=== PATIENT | male | born 1960 | race Caucasian/White ===

== ENCOUNTER 2017-09-14 07:40 | Outpatient (CLI) | payer OTHER ==
--- NOTE | 2017-09-15 14:05 | MRI Report ---
Procedure Date: 09/14/2017 Accession Number: [id number] / [id number] Procedure: MRI - Shoulder RT W/O CPT Code: FULL RESULT: EXAM: RIGHT SHOULDER MRI WITHOUT CONTRAST EXAM DATE: 09/14/2017 08:00 AM. CLINICAL HISTORY: Rotator cuff tear. COMPARISON: None. TECHNIQUE: Multiplanar, multisequence T1-weighted and fluid-sensitive sequences of the shoulder without contrast. Other: None. FINDINGS: Rotator cuff: Ill-defined partial-thickness distal articular surface tear of the supraspinatus measuring approximately 1.4 cm medial to lateral and 1.5 cm anteroposterior. This tear appears to involve approximately 50% of the tendon thickness. There is patchy edema throughout the distal supraspinatus. Focal edema at the upper infraspinatus insertion with possible 3-mm focus of low-grade intrasubstance insertional tear. Ill-defined partial-thickness distal intrasubstance and articular surface tear of the subscapularis measuring approximately 1.0 cm craniocaudad and 1.2 cm medial to lateral. There is medial dislocation of the biceps tendon from the bicipital groove into the substance of the lower fibers of the distal subscapularis and deep to the remaining upper fibers of the distal subscapularis. Mild fatty atrophy involving upper fibers of the subscapularis. Remaining rotator cuff muscles demonstrate no atrophy. Long head biceps tendon: Medial dislocation from the bicipital groove coursing deep to the upper fibers of the subscapularis with intact biceps anchor. Labrum: Intact. No tear is identified. Bones and articular surfaces: No significant articular cartilage defects. Acromioclavicular joint: Normal appearance. Type II acromion. IMPRESSION: 1. Intermediate grade partial-thickness articular surface tear of the distal supraspinatus approximately 1.4 x 1.5 cm. 2. Partial-thickness distal intrasubstance and articular surface tear of the subscapularis approximately 1.0 x 1.2 cm allowing medial dislocation of the otherwise intact long head biceps tendon. [facility] MUSCULOSKELETAL RADIOLOGY SECTION
== END 2017-09-14 07:41 | disposition home or self-care (01) ==
LOC: DI 07:40
PROVIDERS: ATTEND Physician Assistant
DX: M75.101 Unspecified rotator cuff tear or rupture of right shoulder, not specified as traumatic (principal)

== ENCOUNTER 2018-04-28 10:25 | Outpatient (CLI) | payer OTHER | END 2018-04-28 10:26 | disposition home or self-care (01) | LOC: SC 10:25 | PROVIDERS: ATTEND Internal Medicine Pulmonary Disease | DX: G47.10 Hypersomnia, unspecified (principal); R06.81 Apnea, not elsewhere classified; G47.8 Other sleep disorders; R06.83 Snoring | CPT/HCPCS: 99203; 99212 ==

== ENCOUNTER 2018-06-06 23:11 | Outpatient (CLI) | payer OTHER | END 2018-06-06 23:12 | disposition home or self-care (01) | LOC: SC 23:11 | PROVIDERS: ATTEND Internal Medicine Pulmonary Disease | DX: G47.61 Periodic limb movement disorder (principal) | CPT/HCPCS: 95810 ==

== ENCOUNTER 2018-06-17 16:06 | Outpatient (CLI) | payer OTHER | END 2018-06-17 16:07 | disposition home or self-care (01) | LOC: SC 16:06 | PROVIDERS: ATTEND Nurse Practitioner Family | DX: R06.83 Snoring (principal); G47.61 Periodic limb movement disorder | CPT/HCPCS: 99212; 99214 ==

== ENCOUNTER 2018-07-18 09:37 | Outpatient (CLI) | payer OTHER ==
[2018-07-18 12:53] LABS: BASOPHILS # (AUTO) 0.1 10^3/uL (0.0-0.1); BASOPHILS % (AUTO) 1.1 %; EOSINOPHILS # (AUTO) 0.1 10^3/uL (0.0-0.7); EOSINOPHILS % (AUTO) 1.6 %; HGB - HEMOGLOBIN 16.5 g/dL (14.0-18.0); LYMPHOCYTES # (AUTO) 2.1 10^3/uL (1.5-3.5); LYMPHOCYTES % (AUTO) 29.7 %; MEAN CORPUSCULAR HEMOGLOBIN 31.7 pg (27.0-31.0); MEAN CORPUSCULAR HGB CONC 35.3 g/dL (32.0-36.0); MEAN CORPUSCULAR VOLUME 89.8 fL (80.0-94.0); MEAN PLATELET VOLUME 8.7 fL (7.4-11.4); MONOCYTES # (AUTO) 0.7 10^3/uL (0.0-1.0); MONOCYTES % (AUTO) 9.1 %; NEUTROPHILS # (AUTO) 4.2 10^3/uL (1.5-6.6); NEUTROPHILS % (AUTO) 58.5 %; PLT - PLATELET COUNT 222 10^3/uL (130-450); RED BLOOD COUNT 5.22 10^6/uL (4.70-6.10); RED CELL DISTRIBUTION WIDTH 13.2 % (12.0-15.0); WHITE BLOOD COUNT 7.2 x10^3/uL (4.8-10.8)
[2018-07-18 13:15] LABS: ALBUMIN 4.2 g/dL (3.2-5.5); ALBUMIN/GLOBULIN RATIO 1.4 (1.0-2.2); ALKALINE PHOSPHATASE 102 IU/L (42-121); ALT ALANINE AMINOTRANSFERASE 41 IU/L (10-60); AST ASPARTATE AMINOTRANSFERASE 28 IU/L (10-42); BILIRUBIN,TOTAL 0.9 mg/dL (0.2-1.0); BUN - BLOOD UREA NITROGEN 17 mg/dL (6-20); CALCIUM 8.9 mg/dL (8.5-10.3); CARBON DIOXIDE - CO2 25 mmol/L (21-32); CHLORIDE 105 mmol/L (101-111); CHOL/HDL RATIO 6.9 (<5.0); CHOLESTEROL 158 mg/dL; CREATININE 0.9 mg/dL (0.6-1.2); GFR - MDRD 87 (>89); GLUCOSE 104 mg/dL (70-100); HDL CHOLESTEROL 23 mg/dL; LDL CHOLESTEROL,CALCULATED 84 mg/dL; LDL/HDL RATIO 3.7 (<3.6); SODIUM 137 mmol/L (135-145); TOTAL PROTEIN 7.2 g/dL (6.7-8.2); VLDL CHOLESTEROL 51 mg/dL
== END 2018-07-18 23:59 | disposition home or self-care (01) ==
LOC: LAB.WCP 09:37
PROVIDERS: ATTEND Family Medicine
DX: R31.21 Asymptomatic microscopic hematuria (principal); I10 Essential (primary) hypertension; R73.01 Impaired fasting glucose; Z12.5 Encounter for screening for malignant neoplasm of prostate
CPT/HCPCS: 36415; 80053; 80061; 83721; 84153; 84443; 85025

== ENCOUNTER 2019-05-26 10:28 | Outpatient (CLI) | payer OTHER ==
--- NOTE | 2019-05-26 15:23 | XRAY Report ---
Reason: CHRONIC COUGH Procedure Date: 05/26/2019 Accession Number: [id number] / [id number] Procedure: WCP - Chest 2 View X-Ray CPT Code: 88944 Final Report FULL RESULT: EXAM: CHEST RADIOGRAPHY EXAM DATE: 05/26/2019 10:28 AM. CLINICAL HISTORY: CHRONIC COUGH. COMPARISON: None. TECHNIQUE: 2 views. FINDINGS: Lungs/Pleura: No focal opacities evident. No pleural effusion. No pneumothorax. Normal volumes. Mediastinum: Heart and mediastinal contours are unremarkable. Other: None. IMPRESSION: No acute intrathoracic plain film abnormality. [facility]
== END 2019-05-26 23:59 | disposition home or self-care (01) ==
LOC: DI.WCP 10:28
PROVIDERS: ATTEND Family Medicine
DX: R05 Cough (principal)
CPT/HCPCS: 71046

== ENCOUNTER 2019-10-14 11:18 | Outpatient (CLI) | payer OTHER ==
[2019-10-14] MEDS ORDERED: IOVERSOL 320 100 ML VIAL IVP ONE ×2 (11:29→15:36)
[2019-10-14] MEDS ORDERED: IOVERSOL 320 50 ML VIAL ONE (11:29)
[2019-10-14 12:10] LABS: ALBUMIN 4.3 g/dL (3.2-5.5); ALBUMIN/GLOBULIN RATIO 1.4 (1.0-2.2); BILIRUBIN,TOTAL 0.9 mg/dL (0.2-1.0); CALCIUM 9.3 mg/dL (8.5-10.3); CREATININE 1.1 mg/dL (0.6-1.2); TOTAL PROTEIN 7.4 g/dL (6.7-8.2)
--- NOTE | 2019-10-14 12:58 | CT Report ---
PROCEDURE: Abdomen/Pelvis W INDICATIONS: ABDOMINAL PAIN, RLQ CONTRAST: IV CONTRAST: Optiray 320 ml: 100 PO CONTRAST: Optiray 320 ml50 TECHNIQUE: After the administration of oral and IV contrast, 5 mm thick sections acquired from the diaphragms to the symphysis. 5 mm thick coronal and sagittal reformats were acquired. For radiation dose reducti on, the following was used: automated exposure control, adjustment of mA and/or kV according to elie ent size. COMPARISON: None. FINDINGS: Image quality: Excellent. ABDOMEN: Lung bases: Lung bases are clear. Heart size is normal. Solid organs: Liver is enlarged with steatosis. The spleen is within normal limits. Gallbladder is unremarkable Biliary system is non dilated. Pancreas enhances normally. No adrenal nodules. Kidne ys demonstrate normal size and enhancement, without hydronephrosis. Peritoneum and bowel: Bowel loops are nonobstructive. There is mild scattered nonspecific thickening of small bowel loops within the left hemiabdomen. No free fluid or air. Moderate stool is present w ithin the right colon. The appendix is not definitively identified. However, no pericolonic stranding or free fluid is present within the right lower quadrant. Nodes and vessels: No retroperitoneal or mesenteric adenopathy by size criteria. Minimal scattered s ubcentimeter lymph nodes measuring 2 to 4 mm in size are present within the right lower quadrant. Aor ta and inferior vena cava are normal in size. Miscellaneous: No ventral hernias. PELVIS: Genitourinary: Bladder wall thickness is normal. Miscellaneous: Fat-containing inguinal hernias are present. Bones: No suspicious bony lesions. No vertebral body compression fractures. IMPRESSION: 1. Nonspecific prominence of scattered left hemiabdomen small bowel loops. This could be related to i ncomplete distention. However, enteritis cannot be definitively excluded. 2. Nonvisualization of the appendix. No right lower quadrant inflammatory change. Several scattered s ubcentimeter lymph nodes are present within the right lower quadrant. In appropriate clinical circums tance, mesenteric adenitis cannot be definitively excluded. Message with call back number was left for Shannen Garcias was unavailable at the time of call for michael [email or web address] on 10/14/2019 at 12:55 PM. Reviewed by: Ania Hamm MD on 10/14/2019 12:57 PM PDT Approved by: Ania Hamm MD on 10/14/2019 12:57 PM PDT Station ID: [id number]
[2019-10-14] MEDS ORDERED: IOVERSOL 320 50 ML VIAL PO ONE (15:36)
== END 2019-10-14 11:19 | disposition home or self-care (01) ==
LOC: DI 11:18
PROVIDERS: ATTEND Nurse Practitioner Family
DX: R93.5 Abnormal findings on diagnostic imaging of other abdominal regions, including retroperitoneum (principal); R10.31 Right lower quadrant pain
CPT/HCPCS: 36415; 74177; 80053; Q9967

== ENCOUNTER 2020-12-17 11:09 | Outpatient (CLI) | payer OTHER ==
--- NOTE | 2020-12-17 13:25 | XRAY Report ---
PROCEDURE: Foot 3 View RT INDICATIONS: RIGHT FOOT PLANTAR FASCIITIS TECHNIQUE: 3 views of the foot were acquired. COMPARISON: None FINDINGS: Bones: No fractures or dislocations. No suspicious bony lesions. There is a presumed bone island s een involving the proximal portion of the distal phalanx of the great toe. Degenerative changes are seen, which are worst involving the first ray. Incidental note is made of an accessory ossicle, an os peroneum. A posteriorly projected medial process of the navicular bone can be seen. Soft tissues: No tibiotalar joint effusion. Achilles tendon appears normal. IMPRESSION: Focal degenerative change is seen involving the first ray. If it would be helpful for clinical management decision making, please consider a dedicated MRI throu gh the hindfoot and plantar fascia (assuming that there is no contraindication). Reviewed by: Devin Marquez MD on 12/17/2020 12:23 PM [facility] Approved by: Devin Marquez MD on 12/17/2020 12:23 PM [facility] Station ID: [id number]
== END 2020-12-17 23:59 ==
LOC: DI.N 11:09
PROVIDERS: ATTEND Family Medicine
DX: M19.071 Primary osteoarthritis, right ankle and foot (principal)

== ENCOUNTER 2021-01-28 11:30 | Outpatient (CLI) | payer OTHER ==
--- NOTE | 2021-01-28 17:31 | XRAY Report ---
PROCEDURE: Shoulder 3 View RT INDICATIONS: PAIN IN RIGHT SHOULDER TECHNIQUE: 3 views of the shoulder were acquired. COMPARISON: None. FINDINGS: Bones: No fractures or dislocations. There is slight lateral downsloping of the acromion. There is minimal acromioclavicular joint degeneration. No suspicious bony lesions. Visualized ribs appear int act. Soft tissues: No suspicious soft tissue calcifications. IMPRESSION: 1. No fracture or dislocation. 2. Slight lateral downsloping of the acromion may be associated with rotator cuff tearing. Reviewed by: Abdoulaye Finley MD on 01/28/2021 4:29 PM [facility] Approved by: Abdoulaye Finley MD on 01/28/2021 4:29 PM [facility] Station ID: [id number]
== END 2021-01-28 23:59 | disposition home or self-care (01) ==
LOC: DI.N 11:30
PROVIDERS: ATTEND Nurse Practitioner
DX: M25.511 Pain in right shoulder (principal)

== ENCOUNTER 2022-02-10 09:14 | Outpatient (CLI) | payer OTHER ==
[2022-02-10 18:58] LABS: BASOPHILS # (AUTO) 0.1 10^3/uL (0.0-0.1); BASOPHILS % (AUTO) 1.4 %; EOSINOPHILS # (AUTO) 0.2 10^3/uL (0.0-0.7); EOSINOPHILS % (AUTO) 2.1 %; HCT - HEMATOCRIT 46.8 % (42.0-52.0); HGB - HEMOGLOBIN 16.3 g/dL (14.0-18.0); LYMPHOCYTES # (AUTO) 2.3 10^3/uL (1.5-3.5); LYMPHOCYTES % (AUTO) 32.3 %; MEAN CORPUSCULAR HEMOGLOBIN 32.3 pg (27.0-31.0); MEAN CORPUSCULAR HGB CONC 34.8 g/dL (32.0-36.0); MEAN CORPUSCULAR VOLUME 92.9 fL (80.0-94.0); MEAN PLATELET VOLUME 10.8 fL (7.4-11.4); MONOCYTES # (AUTO) 0.7 10^3/uL (0.0-1.0); MONOCYTES % (AUTO) 9.2 %; NEUTROPHILS # (AUTO) 3.9 10^3/uL (1.5-6.6); NEUTROPHILS % (AUTO) 54.9 %; PLT - PLATELET COUNT 218 10^3/uL (130-450); RED BLOOD COUNT 5.04 10^6/uL (4.70-6.10); RED CELL DISTRIBUTION WIDTH 12.6 % (12.0-15.0); WHITE BLOOD COUNT 7.1 x10^3/uL (4.8-10.8)
[2022-02-10 19:33] LABS: ALBUMIN 4.4 g/dL (3.2-5.5); ALBUMIN/GLOBULIN RATIO 1.3 (1.0-2.2); ALKALINE PHOSPHATASE 89 IU/L (42-121); ALT ALANINE AMINOTRANSFERASE 75 IU/L (10-60); AST ASPARTATE AMINOTRANSFERASE 37 IU/L (10-42); BUN - BLOOD UREA NITROGEN 18 mg/dL (6-20); CALCIUM 9.4 mg/dL (8.5-10.3); CARBON DIOXIDE - CO2 26 mmol/L (21-32); CHLORIDE 102 mmol/L (101-111); CHOL/HDL RATIO 8.1 (<5.0); CHOLESTEROL 178 mg/dL; CREATININE 0.9 mg/dL (0.6-1.2); GFR - MDRD 86 (>89); GLUCOSE 230 mg/dL (70-100); HDL CHOLESTEROL 22 mg/dL; LDL CHOLESTEROL,CALCULATED 82 mg/dL; LDL/HDL RATIO 3.7 (<3.6); POTASSIUM 4.7 mmol/L (3.5-5.0); SODIUM 136 mmol/L (135-145); TOTAL PROTEIN 7.7 g/dL (6.7-8.2); TRIGLYCERIDES 371 mg/dL; VLDL CHOLESTEROL 74 mg/dL
[2022-02-10 19:35] LABS: THYROID STIMULATING HORMONE 2.42 uIU/mL (0.34-5.60)
[2022-02-10 21:21] LABS: ESTIMATED AVERAGE GLUCOSE 180 mg/dL (70-100); HEMOGLOBIN A1c% 7.9 % (4.27-6.07)
== END 2022-02-10 09:15 | disposition home or self-care (01) ==
LOC: LAB.N 09:14
PROVIDERS: ATTEND Physician Assistant
DX: E78.1 Pure hyperglyceridemia (principal); I10 Essential (primary) hypertension; R73.01 Impaired fasting glucose; R74.8 Abnormal levels of other serum enzymes
CPT/HCPCS: 36415; 80053; 80061; 83036; 83721; 84443; 85025

== ENCOUNTER 2022-06-08 15:13 | Outpatient (CLI) | payer OTHER ==
[2022-06-08 17:59] LABS: CALCIUM 9.9 mg/dL (8.5-10.3); CREATININE 0.8 mg/dL (0.6-1.2); POTASSIUM 3.9 mmol/L (3.5-5.0)
[2022-06-08 18:10] LABS: CREATININE,URINE 99.3 mg/dL; MICROALBUM/CREATININE RATIO,UR 12.1 ug/mg (<30.0); MICROALBUMIN,URINE 1.2 mg/dL (0-300.0)
[2022-06-08 21:32] LABS: ESTIMATED AVERAGE GLUCOSE 100 mg/dL (70-100); HEMOGLOBIN A1c% 5.1 % (4.27-6.07)
== END 2022-06-08 15:14 | disposition home or self-care (01) ==
LOC: LAB.N 15:13
PROVIDERS: ATTEND Physician Assistant
DX: E11.65 Type 2 diabetes mellitus with hyperglycemia (principal)
CPT/HCPCS: 36415; 80048; 82043; 82570; 83036

== ENCOUNTER 2022-06-15 09:58 | Outpatient (CLI) | payer OTHER | END 2022-06-15 09:59 | disposition home or self-care (01) | LOC: DI 09:58 | PROVIDERS: ATTEND Physician Assistant | DX: I38 Endocarditis, valve unspecified (principal) | CPT/HCPCS: 93306 ==

== ENCOUNTER 2022-12-07 09:33 | Outpatient (CLI) | payer OTHER ==
--- NOTE | 2022-12-07 11:14 | XRAY Report ---
PROCEDURE: Knee 4 View LT INDICATIONS: KNEE PAIN TECHNIQUE: 4 views of the left knee(s) were acquired. COMPARISON: None. FINDINGS: Bones: No fractures or dislocations. No suspicious bony lesions. Tricompartmental joint space narrowing with associated osteophytosis. Soft tissues: No knee joint effusion. No suspicious soft tissue calcifications or masses. IMPRESSION: Mild to moderate tricompartmental osteoarthritis. Kellgren-Tejas scale of osteoarthritis: 2. Reviewed by: Yeison Cruz on 12/07/2022 11:12 AM PDT Approved by: Yeison Cruz on 12/07/2022 11:12 AM PDT Station ID: [id number]
== END 2022-12-07 09:34 | disposition home or self-care (01) ==
LOC: DI 09:33
PROVIDERS: ATTEND Physician Assistant
DX: M17.12 Unilateral primary osteoarthritis, left knee (principal)

== ENCOUNTER 2023-08-10 10:02 | Outpatient (CLI) | payer OTHER ==
[2023-08-10 18:47] LABS: CALCIUM 9.6 mg/dL (8.5-10.3); CREATININE 0.9 mg/dL (0.6-1.3); POTASSIUM 4.6 mmol/L (3.5-4.5)
[2023-08-10 20:38] LABS: ESTIMATED AVERAGE GLUCOSE 108 mg/dL (70-100); HEMOGLOBIN A1c% 5.4 % (4.27-6.07)
== END 2023-08-10 10:03 | disposition home or self-care (01) ==
LOC: LAB.N 10:02
PROVIDERS: ATTEND Physician Assistant
DX: E11.9 Type 2 diabetes mellitus without complications (principal); Z12.5 Encounter for screening for malignant neoplasm of prostate
CPT/HCPCS: 36415; 80048; 83036; 84153